=== PATIENT | male | born 1955 | race African-American/Black ===

== ENCOUNTER 2017-04-24 14:33 | Inpatient (IN) | payer MEDICAID ==
[~2017-04-24] VITALS: Ht 172.7 cm; Wt 53.5 kg
[2017-04-24] MEDS ORDERED: ONDANSETRON HCL 4MG/2ML VIAL IV STA (15:03)
[2017-04-24] MEDS ORDERED: ONDANSETRON 4MG ODT PO STA (15:03)
[2017-04-24] MEDS ORDERED: VANCOMYCIN 1,500 MG in DEXT 5% WATER 250 ML IV STA (15:03)
[2017-04-24 15:12] LABS: BASOPHILS % 0.2 % (0.0-2.0); HEMATOCRIT. 43.9 % (42.0-52.0); HEMOGLOBIN. 14.7 g/dL (14.0-18.0); LYMPHOCYTES % 13.9 % (20.0-50.0); MEAN CORPUSCULAR HEMOGLOBIN 28.1 pg (28.0-32.0); MEAN CORPUSCULAR VOLUME 83.8 fL (80.0-94.0); MEAN PLATELET VOLUME 8.1 fl (7.4-10.4); MONOCYTES % 6.2 % (2.0-8.0); NEUTROPHILS % 79.7 % (40.0-76.0); PLATELET 122 x1000/uL (130-400); RED BLOOD CELL COUNT 5.24 mill/uL (4.7-6.1); RED CELL DISTRIBUTION WIDTH 13.3 % (11.6-14.6)
[2017-04-24] MEDS ORDERED: PIPERACILLIN/TAZ 3.375G PREMIX 50 ML IV ONE (15:15)
[2017-04-24] MEDS ORDERED: LEVOFLOXACIN 750MG PREMIX 150 ML IV ONE (15:15)
[2017-04-24 15:16] LABS: CHLORIDE 99 mEq/L (98-107); INR 1.2; PROTHROMBIN TIME 12.7 sec (9.4-11.6)
[2017-04-24 15:26] LABS: CARBON DIOXIDE 25 mEq/L (21-32); TROPONIN I < 0.02 ng/mL (0.00-0.04)
[2017-04-24] MEDS ORDERED: MORPHINE SULFATE 4 MG/ML CPJ (NOT FOR IM USE) IV ONE (15:45)
[2017-04-24] MEDS ORDERED: HYDROMORPHONE HCL/PF 2MG/ML CPJ IV NR (18:00)
[2017-04-24] MEDS ORDERED: POTASSIUM CHLORIDE 20MEQ TABLET SR PO NR (19:00)
[2017-04-24 19:51] LABS: CLARITY URINE CLEAR (CLEAR); COLOR URINE DARK YELLOW (YELLOW); GLUCOSE URINE NEGATIVE (NEGATIVE); KETONES URINE TRACE (NEGATIVE); LEUKOCYTE ESTERASE URINE NEGATIVE (NEGATIVE); NITRITE URINE NEGATIVE (NEGATIVE); OCCULT BLOOD URINE NEGATIVE (NEGATIVE); PROTEIN URINE 2+ (NEGATIVE)
[2017-04-24 20:45] VITALS: BP 112/72
[2017-04-24] MEDS ORDERED: ACETAMINOPHEN 325MG TABLET PO PRN (22:15)
[2017-04-24] MEDS ORDERED: VANCOMYCIN 1 G PREMIX 200 ML IV SCH (22:15)
[2017-04-24] MEDS ORDERED: HYDROMORPHONE HCL/PF 2MG/ML CPJ IV PRN (22:15)
[2017-04-24] MEDS ORDERED: IPRATROPIUM/ALBUTEROL 0.5-3(2.5)MG/3ML NEB INH PRN (22:15)
[2017-04-24] MEDS ORDERED: CLONIDINE 0.1MG TABLET PO PRN (22:15)
[2017-04-24] MEDS ORDERED: MAGNESIUM/ALUMINUM HYDROXIDE/SIMETHICONE 30ML UDC PO PRN (22:15)
[2017-04-24] MEDS ORDERED: DIPHENHYDRAMINE 50MG/ML VIAL IV PRN (22:15)
[2017-04-24] MEDS: SODIUM CHLORIDE 0.9% 1,000 ML IV SCH (22:36)
[2017-04-24 22:47] VITALS: BP 112/72
[2017-04-24] MEDS: PIPERACILLIN/TAZ 3.375G PREMIX 50 ML IV SCH (23:34)
[2017-04-25] VITALS: BP 125/88
[2017-04-25 04:00] VITALS: BP 101/64
[2017-04-25] MEDS ORDERED: VANCOMYCIN 1250MG in DEXTROSE 5% WATER 250ML IV SCH (04:00)
[2017-04-25] MEDS: PIPERACILLIN/TAZ 3.375G PREMIX 50 ML IV SCH ×3 (05:20→18:42)
[2017-04-25 05:47] LABS: BASOPHILS % 0.1 % (0.0-2.0); HEMATOCRIT. 38.2 % (42.0-52.0); HEMOGLOBIN. 12.7 g/dL (14.0-18.0); LYMPHOCYTES % 11.8 % (20.0-50.0); MEAN CORPUSCULAR HEMOGLOBIN 28.1 pg (28.0-32.0); MEAN CORPUSCULAR VOLUME 84.7 fL (80.0-94.0); MEAN PLATELET VOLUME 8.5 fl (7.4-10.4); MONOCYTES % 7.3 % (2.0-8.0); NEUTROPHILS % 80.8 % (40.0-76.0); PLATELET 112 x1000/uL (130-400); RED BLOOD CELL COUNT 4.52 mill/uL (4.7-6.1); RED CELL DISTRIBUTION WIDTH 13.6 % (11.6-14.6)
[2017-04-25 06:43] LABS: CARBON DIOXIDE 24 mEq/L (21-32); CHLORIDE 100 mEq/L (98-107); PHOSPHORUS 1.4 mg/dL (2.5-4.9)
[2017-04-25] MEDS: ONDANSETRON HCL 4MG/2ML VIAL IV PRN ×2 (07:46→21:45)
[2017-04-25] MEDS: SODIUM CHLORIDE 0.9% 1,000 ML IV SCH ×2 (07:46→13:17)
[2017-04-25 08:00] VITALS: BP 105/78
[2017-04-25] MEDS ORDERED: PROMETHAZINE LIQUID 6.25MG/5ML 118ML PO PRN (08:00)
[2017-04-25] MEDS: BENZONATATE 100MG CAPSULE PO SCH ×3 (09:17→21:40)
[2017-04-25] MEDS: GUAIFENESIN 600MG ER TABLET PO SCH ×2 (09:18→21:40)
[2017-04-25 11:35] VITALS: BP 104/60
[2017-04-25 16:00] VITALS: BP 122/76
[2017-04-25] MEDS: VANCOMYCIN 1 G PREMIX 200 ML IV SCH (16:11)
[2017-04-25 20:00] VITALS: BP 116/67
[2017-04-25] MEDS: IPRATROPIUM/ALBUTEROL 0.5-3(2.5)MG/3ML NEB HHN SCH (20:04)
[2017-04-26] VITALS: BP 110/69
[2017-04-26] MEDS: PIPERACILLIN/TAZ 3.375G PREMIX 50 ML IV SCH ×4 (01:03→18:45)
[2017-04-26] MEDS: IPRATROPIUM/ALBUTEROL 0.5-3(2.5)MG/3ML NEB HHN SCH ×4 (01:51→21:16)
[2017-04-26 04:00] VITALS: BP 101/59
[2017-04-26] MEDS: VANCOMYCIN 1 G PREMIX 200 ML IV SCH ×2 (04:03→16:44)
[2017-04-26] MEDS: SODIUM CHLORIDE 0.9% 1,000 ML IV SCH ×2 (04:03→14:03)
[2017-04-26] MEDS: BENZONATATE 100MG CAPSULE PO SCH ×3 (05:56→21:26)
[2017-04-26 08:00] VITALS: BP 115/69
[2017-04-26] MEDS: GUAIFENESIN 600MG ER TABLET PO SCH ×2 (09:02→21:26)
[2017-04-26 12:00] VITALS: BP 117/72
[2017-04-26 16:02] VITALS: BP 141/88
[2017-04-26 20:00] VITALS: BP 119/85
[2017-04-26] MEDS ORDERED: POTASSIUM PHOS,M-BASIC-D-BASIC 20 MMOL in DEXT 5% WATER 243.3333 ML IV NR (21:00)
[2017-04-27] VITALS (7 sets, daily range): BP systolic 93–139; BP diastolic 56–80
[2017-04-27] MEDS: SODIUM CHLORIDE 0.9% 1,000 ML IV SCH ×2 (00:03→09:50)
[2017-04-27] MEDS: IPRATROPIUM/ALBUTEROL 0.5-3(2.5)MG/3ML NEB HHN SCH ×3 (01:14→14:27)
[2017-04-27 02:13] LABS: BASOPHILS % 0.2 % (0.0-2.0); EOSINOPHILS % 0.3 % (0.0-5.0); HEMATOCRIT. 42.2 % (42.0-52.0); HEMOGLOBIN. 13.9 g/dL (14.0-18.0); MEAN CORPUSCULAR VOLUME 84.8 fL (80.0-94.0); MEAN PLATELET VOLUME 8.4 fl (7.4-10.4); MONOCYTES % 11.8 % (2.0-8.0); NEUTROPHILS % 69.7 % (40.0-76.0); PLATELET 173 x1000/uL (130-400); RED BLOOD CELL COUNT 4.97 mill/uL (4.7-6.1); RED CELL DISTRIBUTION WIDTH 13.8 % (11.6-14.6)
[2017-04-27 02:44] LABS: CHLORIDE 104 mEq/L (98-107)
[2017-04-27 02:55] LABS: CARBON DIOXIDE 24 mEq/L (21-32); PHOSPHORUS 3.2 mg/dL (2.5-4.9); VANCOMYCIN TROUGH 15.8 ug/mL (5.0-10.0)
[2017-04-27] MEDS: VANCOMYCIN 1 G PREMIX 200 ML IV SCH ×2 (03:25→15:55)
[2017-04-27] MEDS: PIPERACILLIN/TAZ 3.375G PREMIX 50 ML IV SCH ×4 (05:25→17:52)
[2017-04-27] MEDS: BENZONATATE 100MG CAPSULE PO SCH ×2 (05:32→15:54)
[2017-04-27] MEDS: GUAIFENESIN 600MG ER TABLET PO SCH (08:57)
== END 2017-04-27 20:18 | disposition left against medical advice (07) | DRG 140 ==
LOC: ENRESERV 15:25 → ER 16:35 → 8WST 19:27 → EDBEDREQ 19:34 → EDBEDREQSVC 19:35 → ENRESERV 19:40
PROVIDERS: ADMIT Internal Medicine; ATTEND Internal Medicine
DX: J44.0 Chronic obstructive pulmonary disease with (acute) lower respiratory infection (principal); C22.0 Liver cell carcinoma; E44.1 Mild protein-calorie malnutrition; E87.1 Hypo-osmolality and hyponatremia; F17.210 Nicotine dependence, cigarettes, uncomplicated; E87.6 Hypokalemia; Z53.21 Procedure and treatment not carried out due to patient leaving prior to being seen by health care provider; J20.9 Acute bronchitis, unspecified; Z82.49 Family history of ischemic heart disease and other diseases of the circulatory system; Z83.3 Family history of diabetes mellitus
CPT/HCPCS: 36415; 71010; 80053; 80202; 81001; 82270; 83605; 83735; 83880; 84100; 84484; 85025; 85610; 87040; 87070; 87086; 87493; 87804; 93005; 93970; 94640; 94664; 96365; 96367; 96368; 96375; 99285; J1170; J1956; J2270; J2405; J2543; J3370; J3490; J7030; J7060; J7620; Q0169